=== PATIENT | male | born 1960 | race Caucasian/White ===

== ENCOUNTER 2022-05-08 09:50 | Emergency (ER) | payer OTHER, SELFPAY ==
[2022-05-08] VITALS (29 sets, daily range): BP systolic 137–157; BP diastolic 87–101; PULSE 75–101; RESP 16; TEMP 36.7–36.8; O2SAT 92–98; BMI 28.5
--- NOTE | 2022-05-08 10:03 | ED_ITS ---
HPI - Abdominal Pain General Time Seen by Provider: 10:03 <Chula Jade MD - Last Filed: 05/08/22 11:24> Date Seen: 05/08/22 <Chula Jade MD - Last Filed: 05/08/22 11:24> Chief Complaint: Abdominal Pain <Chula Jade MD - Last Filed: 05/08/22 11:24> Stated Complaint: Lower LF abdomen pain <Chula Jade MD - Last Filed: 05/08/22 11:24> Time Seen by Provider: 05/08/22 10:02 <Chula Jade MD - Last Filed: 05/08/22 11:24> Source: patient and RN notes reviewed <Chula Jade MD - Last Filed: 05/08/22 11:24> Mode of arrival: ambulatory <Chula Jade MD - Last Filed: 05/08/22 11:24> Limitations: no limitations <Chula Jade MD - Last Filed: 05/08/22 11:24> History of Present Illness HPI narrative: Patient is a 61-year-old male coming in with concern of left lower quadrant abdominal pain for few days now. Friday he maybe just felt a little gurgly in his abdomen. Friday he started noticing some discomfort. Bowels have been normal, no blood in stool, no diarrhea. No fevers and he has checked. He has been able to eat and drink fine. No change in urination. He has never had any bowel surgery. His is an RHIT in was wondering about maybe blockage. He has had no prior abdominal surgery. He states he has had a colonoscopy before, maybe 4-5 years ago. Denies any history of polyps. His dad has had kidney stones before, he is never had anything like kidney stones. He did try some milk of magnesia yesterday, stool was a little darker this morning. 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 This started to concern him though as it has been there for few days now. He was worried about possibly such things as pancreatitis. We did go over typical presentation of pancreatitis, this is less likely a diagnosis in my opinion after evaluation of him and did review this with him. We will however do a lipase and proceed with imaging in a 61-year-old male who is had abdominal pain for a few days now. He does notably have a known umbilical hernia which is not symptomatic for him. <Chula Jade MD - Last Filed: 05/08/22 11:24> Related Data Home Medications: Home Medications Medication Instructions Recorded Confirmed cbd drops 05/08/22 <Chula Jade MD - Last Filed: 05/08/22 11:24> Allergies/Adverse Reactions: Allergies Allergy/AdvReac Type Severity Reaction Status Date / Time No Known Drug Allergies Allergy Verified 05/08/22 09:56 <Chula Jade MD - Last Filed: 05/08/22 11:24> Review of Systems Status of ROS Reports: 10 or more systems reviewed and unremarkable except as noted in History and below <Chula Jade MD - Last Filed: 05/08/22 11:24> PFSH [facility] Social History: Social History Smoking Status: Former smoker Do you use any of these nicotine containing products: None Second hand tobacco smoke exposure: No How often do you have a drink containing alcohol: 2-3 times a week How many standard drinks containing alcohol do you have on a typical day: 5 or 6 AUDIT-C Alcohol total score: 5 Non-prescribed substance use: marijuana (any form) service: No <Chula Jade MD - Last Filed: 05/08/22 11:24> Exam Const: Vital Signs, click to edit/add: Vital Signs - 24 hr 05/08/22 09:57 05/08/22 10:03 05/08/22 10:04 Temperature 98.0 F Pulse Rate 95 92 Pulse Rate [Pulse Oximeter] 75 Respiratory Rate 16 16 Blood Pressure 137/95 H Blood Pressure [Ri ght Upper Arm] 142/94 H Pulse Oximetry 97 97 96 Oxygen Delivery Me thod Room Air 05/08/22 10:05 05/08/22 10:15 05/08/22 10:30 Temperature Pulse Rate 98 96 94 Pulse Rate [Pulse Oximeter] Respiratory Rate Blood Pressure Blood Pressure [Ri ght Upper Arm] Pulse Oximetry 96 98 96 Oxygen Delivery Me thod 05/08/22 10:32 05/08/22 10:46 05/08/22 11:00 Temperature Pulse Rate 90 91 90 Pulse Rate [Pulse Oximeter] Respiratory Rate Blood Pressure 141/87 H Blood Pressure [Ri ght Upper Arm] Pulse Oximetry 97 94 95 Oxygen Delivery Me thod 05/08/22 11:02 05/08/22 11:15 05/08/22 11:30 Temperature Pulse Rate 85 90 88 Pulse Rate [Pulse Oximeter] Respiratory Rate Blood Pressure 148/91 H Blood Pressure [Ri ght Upper Arm] Pulse Oximetry 95 96 96 Oxygen Delivery Me thod 05/08/22 11:31 05/08/22 11:32 05/08/22 11:45 Temperature Pulse Rate 87 86 84 Pulse Rate [Pulse Oximeter] Respiratory Rate Blood Pressure 146/92 H Blood Pressure [Ri ght Upper Arm] Pulse Oximetry 96 95 95 Oxygen Delivery Me thod 05/08/22 12:18 05/08/22 12:20 05/08/22 12:30 Temperature Pulse Rate 84 90 87 Pulse Rate [Pulse Oximeter] Respiratory Rate Blood Pressure Blood Pressure [Ri ght Upper Arm] Pulse Oximetry 96 96 96 Oxygen Delivery Me thod 05/08/22 12:34 05/08/22 12:45 05/08/22 13:00 Temperature Pulse Rate 86 101 H 91 Pulse Rate [Pulse Oximeter] Respiratory Rate Blood Pressure Blood Pressure [Ri ght Upper Arm] Pulse Oximetry 96 95 95 Oxygen Delivery Me thod 05/08/22 13:02 05/08/22 13:15 05/08/22 13:30 Temperature Pulse Rate 89 92 92 Pulse Rate [Pulse Oximeter] Respiratory Rate Blood Pressure 145/99 H Blood Pressure [Ri ght Upper Arm] Pulse Oximetry 95 93 94 Oxygen Delivery Me thod 05/08/22 13:31 05/08/22 13:45 05/08/22 14:00 Temperature Pulse Rate 91 97 94 Pulse Rate [Pulse Oximeter] Respiratory Rate Blood Pressure 157/97 H Blood Pressure [Ri ght Upper Arm] Pulse Oximetry 94 92 95 Oxygen Delivery Me thod 05/08/22 14:02 05/08/22 14:15 Temperature 98.3 F Pulse Rate 95 94 Pulse Rate [Pulse Oximeter] Respiratory Rate 16 Blood Pressure 152/101 H Blood Pressure [Ri ght Upper Arm] Pulse Oximetry 95 96 Oxygen Delivery Me thod <Chula Jade MD - Last Filed: 05/08/22 11:24> Vital Signs, click to edit/add: Vital Signs - 24 hr 05/08/22 09:57 05/08/22 10:03 05/08/22 10:04 Temperature 98.0 F Pulse Rate 95 92 Pulse Rate [Pulse Oximeter] 75 Respiratory Rate 16 16 Blood Pressure 137/95 H Blood Pressure [Ri ght Upper Arm] 142/94 H Pulse Oximetry 97 97 96 Oxygen Delivery Me thod Room Air 05/08/22 10:05 05/08/22 10:15 05/08/22 10:30 Temperature Pulse Rate 98 96 94 Pulse Rate [Pulse Oximeter] Respiratory Rate Blood Pressure Blood Pressure [Ri ght Upper Arm] Pulse Oximetry 96 98 96 Oxygen Delivery Me thod 05/08/22 10:32 05/08/22 10:46 05/08/22 11:00 Temperature Pulse Rate 90 91 90 Pulse Rate [Pulse Oximeter] Respiratory Rate Blood Pressure 141/87 H Blood Pressure [Ri ght Upper Arm] Pulse Oximetry 97 94 95 Oxygen Delivery Me thod 05/08/22 11:02 05/08/22 11:15 05/08/22 11:30 Temperature Pulse Rate 85 90 88 Pulse Rate [Pulse Oximeter] Respiratory Rate Blood Pressure 148/91 H Blood Pressure [Ri ght Upper Arm] Pulse Oximetry 95 96 96 Oxygen Delivery Me thod 05/08/22 11:31 05/08/22 11:32 05/08/22 11:45 Temperature Pulse Rate 87 86 84 Pulse Rate [Pulse Oximeter] Respiratory Rate Blood Pressure 146/92 H Blood Pressure [Ri ght Upper Arm] Pulse Oximetry 96 95 95 Oxygen Delivery Me thod 05/08/22 12:18 05/08/22 12:20 05/08/22 12:30 Temperature Pulse Rate 84 90 87 Pulse Rate [Pulse Oximeter] Respiratory Rate Blood Pressure Blood Pressure [Ri ght Upper Arm] Pulse Oximetry 96 96 96 Oxygen Delivery Me thod 05/08/22 12:34 05/08/22 12:45 05/08/22 13:00 Temperature Pulse Rate 86 101 H 91 Pulse Rate [Pulse Oximeter] Respiratory Rate Blood Pressure Blood Pressure [Ri ght Upper Arm] Pulse Oximetry 96 95 95 Oxygen Delivery Me thod 05/08/22 13:02 05/08/22 13:15 05/08/22 13:30 Temperature Pulse Rate 89 92 92 Pulse Rate [Pulse Oximeter] Respiratory Rate Blood Pressure 145/99 H Blood Pressure [Ri ght Upper Arm] Pulse Oximetry 95 93 94 Oxygen Delivery Me thod 05/08/22 13:31 05/08/22 13:45 05/08/22 14:00 Temperature Pulse Rate 91 97 94 Pulse Rate [Pulse Oximeter] Respiratory Rate Blood Pressure 157/97 H Blood Pressure [Ri ght Upper Arm] Pulse Oximetry 94 92 95 Oxygen Delivery Me thod 05/08/22 14:02 05/08/22 14:15 Temperature 98.3 F Pulse Rate 95 94 Pulse Rate [Pulse Oximeter] Respiratory Rate 16 Blood Pressure 152/101 H Blood Pressure [Ri ght Upper Arm] Pulse Oximetry 95 96 Oxygen Delivery Me thod <Stacey Culver MD - Last Filed: 05/08/22 14:37> Documenting provider has reviewed patient's vital signs: yes <Chula Jade MD - Last Filed: 05/08/22 11:24> Common normals: no apparent distress, oriented x3, no limitations, healthy appearing, alert and well nourished <Chula Jade MD - Last Filed: 05/08/22 11:24> General appearance: cooperative, comfortable, well kempt and well developed <Chula Jade MD - Last Filed: 05/08/22 11:24> Nutritional appearance: overweight <Chula Jade MD - Last Filed: 05/08/22 11:24> HENMT: Common normals: normocephalic, head/scalp atraumatic, hearing grossly normal bilaterally, external ears normal, external nose normal, moist oral mucous membranes and oropharynx normal <Chula Jade MD - Last Filed: 05/08/22 11:24> Head and scalp: normocephalic and atraumatic <Chula Jade MD - Last Filed: 05/08/22 11:24> Nose: external nose normal <Chula Jade MD - Last Filed: 05/08/22 11:24> External ear: external ears normal <Chula Jade MD - Last Filed: 05/08/22 11:24> Eye: Common normals: PERRL, EOMs intact bilaterally, conjunctivae normal and no scleral icterus <Chula Jade MD - Last Filed: 05/08/22 11:24> Conjunctiva: conjunctiva(e) normal <Chula Jade MD - Last Filed: 05/08/22 11:24> Pupil: PERRL <Chula Jade MD - Last Filed: 05/08/22 11:24> Neck & C-Spine: Common normals: full ROM, no lymphadenopathy, supple, no meningeal signs, no JVD and thyroid normal <Chula Jade MD - Last Filed: 05/08/22 11:24> Thyroid: thyroid normal <Chula Jade MD - Last Filed: 05/08/22 11:24> Resp: Common normals: normal respiratory effort, no retractions, no use of accessory muscles and clear to auscultation bilaterally <Chula Monaco MD - Last Filed: 05/08/22 11:24> Auscultation: clear to auscultation bilaterally <Chula Jdae MD - Last Filed: 05/08/22 11:24> Cardio: Common normals: no JVD, regular rate, regular rhythm, S1 normal heart sound, S2 normal heart sound, no gallops, no clicks and no murmurs <Chula Jade MD - Last Filed: 05/08/22 11:24> Rate: regular rate <Chula Jade MD - Last Filed: 05/08/22 11:24> Rhythm: regular rhythm <Chula Jade MD - Last Filed: 05/08/22 11:24> Heart sounds: S1 normal and S2 normal <Chula Jade MD - Last Filed: 05/08/22 11:24> GI: Common normals: Normal to inspection, nondistended, normoactive bowel sounds present, soft to palpation, no hepatosplenomegaly and no masses <Chula Jade MD - Last Filed: 05/08/22 11:24> Palpation: soft and no hepatosplenomegaly <Chula Jade MD - Last Filed: 05/08/22 11:24> Other: Mild mid to left lower quadrant abdominal tenderness without any palpable mass, no rebound or guarding at this time. <Chula Jade MD - Last Filed: 05/08/22 11:24> Neuro: Common normals: oriented x3 <Chula Jade MD - Last Filed: 05/08/22 11:24> Sensorium/orientation: alert <Chula Jade MD - Last Filed: 05/08/22 11:24> Meningeal signs: no meningeal signs <Chula Jade MD - Last Filed: 05/08/22 11:24> Psych: Appearance: well kempt <Chula Jade MD - Last Filed: 05/08/22 11:24> Course Course Hospital Course: Will establish an IV, do CT imaging of his abdomen with IV contrast. We will get urinalysis, consider kidney stones. Without other changes, unclear exactly what this is. It certainly could be a low level diverticulitis. I am doubtful that this is an acute surgical abdomen but it could be GI, or other internal abdominal causes of his pain. We need labs and imaging to help us further delineate. His pain is not extensive, does not require any intervention at this time. <Chula Jade MD - Last Filed: 05/08/22 11:24> Reevaluation(s) Reevaluation #1: Reviewed with patient his normal white count, normal lactate and normal urinalysis. The imaging has not been done, awaiting chemistries. Patient brought up that his brother from a thyroid storm, he would like a blood test done for screening with TSH. I tried to review with him that he has no symptoms of thyroid star arm, he has absolutely no tachycardia, no physical stigmata of thyroid storm. It seems that I am unable to reassure him, did end up doing a lab add on for a TSH. Care has been signed over to Dr. Culver. <Chula Jade MD - Last Filed: 05/08/22 11:24> Time: 11:20 <Chula Jade MD - Last Filed: 05/08/22 11:24> Reevaluation #2: Patient was signed out to me by Dr. Shultz to follow up on labs and CT. His labs are reassuring, he was concerned about possible thyroid storm because he has a brother who of this diagnosis. His TSH is normal. His CT scan is read by Radiology showing an enlarged prostate and uncomplicated diverticulitis of the descending colon. I have reviewed all this with him. I have shared with him that more recent studies have not shown a difference between treatment with antibiotics verses observation for uncomplicated diverticulitis in otherwise healthy people. I have discussed with him that regardless of treatment verses observation it is possible that his diverticulitis might get worse and that he might develop a complication requiring IV antibiotics, hospitalization or surgery. He says that he tends to prefer a more holistic route and that he would prefer not to take antibiotics if he does not need to. Therefore, using shared decision-making we will hold off on antibiotics at this time. He will maintain a bland diet, and he understands that if he is having more severe pain or new symptoms such as fever, chills, vomiting, bloody stools etcetera he needs to return to the emergency department for further evaluation. He is comfortable with that plan. <Stacey Culver MD - Last Filed: 05/08/22 14:37> Vital Signs Vital signs: Initial Vital Signs Temperature 98.0 F 05/08/22 09:57 Temperature Source Temporal Artery Scan 05/08/22 09:57 Pulse Rate 75 05/08/22 09:57 Pulse Rhythm 05/08/22 09:57 Respiratory Rate 16 05/08/22 09:57 Blood Pressure 142/94 H 05/08/22 09:57 Blood Pressure Mean 110 05/08/22 09:57 Blood Pressure Position Supine 05/08/22 09:57 Pulse Oximetry 97 05/08/22 09:57 Oxygen Delivery Method 05/08/22 09:57 Vital Signs Temperature 98.0 F 05/08/22 09:57 Pulse Rate 75 05/08/22 09:57 Respiratory Rate 16 05/08/22 09:57 Blood Pressure 142/94 H 05/08/22 09:57 Pulse Oximetry 97 05/08/22 09:57 Oxygen Delivery Method 05/08/22 09:57 Temperature 98.3 F 05/08/22 14:15 Pulse Rate 94 05/08/22 14:15 Respiratory Rate 16 05/08/22 14:15 Blood Pressure 152/101 H 05/08/22 14:02 Pulse Oximetry 96 05/08/22 14:15 Oxygen Delivery Method 05/08/22 09:57 <Chula Jade MD - Last Filed: 05/08/22 11:24> Initial Vital Signs Temperature 98.0 F 05/08/22 09:57 Temperature Source Temporal Artery Scan 05/08/22 09:57 Pulse Rate 75 05/08/22 09:57 Pulse Rhythm 05/08/22 09:57 Respiratory Rate 16 05/08/22 09:57 Blood Pressure 142/94 H 05/08/22 09:57 Blood Pressure Mean 110 05/08/22 09:57 Blood Pressure Position Supine 05/08/22 09:57 Pulse Oximetry 97 05/08/22 09:57 Oxygen Delivery Method 05/08/22 09:57 Vital Signs Temperature 98.0 F 05/08/22 09:57 Pulse Rate 75 05/08/22 09:57 Respiratory Rate 16 05/08/22 09:57 Blood Pressure 142/94 H 05/08/22 09:57 Pulse Oximetry 97 05/08/22 09:57 Oxygen Delivery Method 05/08/22 09:57 Temperature 98.3 F 05/08/22 14:15 Pulse Rate 94 05/08/22 14:15 Respiratory Rate 16 05/08/22 14:15 Blood Pressure 152/101 H 05/08/22 14:02 Pulse Oximetry 96 05/08/22 14:15 Oxygen Delivery Method 05/08/22 09:57 <Stacey Culver MD - Last Filed: 05/08/22 14:37> MDM - Abdominal Pain Lab Data Attestation: I reviewed the patient's lab results. <Chula Jade MD - Last Filed: 05/08/22 11:24> Labs: Lab Results 05/08/22 05/08/22 05/08/22 Range/Units 10:14 10:38 10:38 WBC 8.45 (4.50-11.00) K/uL RBC 4.96 (4.30-5.90) m/uL Hgb 15.7 (13.5-17.5) gm/dL Hct 46.3 (37.0-53.0) % MCV 93 (80-100) fL MCH 32 (26-34) pg MCHC 34 (32-36) gm/dL RDW Coeff of Oscar 12.9 (11.5-15.5) % Plt Count 191 (140-440) K/uL Neut % (Auto) 66.4 (42.0-72.0) % Lymph % (Auto) 25.0 (20-44) % [place] % (Auto) 7.7 (0.0-11.0) % Eos % (Auto) 0.6 (0.0-7.0) % Baso % (Auto) 0.2 (0.0-3.0) % Neut # (Auto) 5.61 (1.7-7.0) K/uL Lymph # (Auto) 2.11 (0.90-2.90) K/uL [place] # (Auto) 0.70 (0.00-0.90) K/UL Eos # (Auto) 0.05 (0.00-0.50) K/uL Baso # (Auto) 0.02 (0.00-0.30) K/uL Sodium (135-149) mmol/L Potassium (3.6-5.1) mmol/L Chloride (96-114) mmol/L Carbon Dioxide (20-32) mmol/L BUN (7-30) mg/dL Creatinine (0.5-1.5) mg/dL Estimated Creat Clear Estimated GFR ml/min Glucose (60-115) mg/dL Lactate 1.5 (0.5-1.9) mmol/L Calcium (8.4-10.6) mg/dL Total Bilirubin (0.1-1.5) mg/dL AST (12-35) U/L ALT (4-50) U/L Alkaline Phosphatase (40-150) U/L C-Reactive Protein (0.5-1.0) mg/dL Total Protein (6.0-8.3) g/dL Albumin (3.3-5.0) g/dL Lipase (23-300) U/L TSH (0.270-4.20) uIU/mL Urine Color Yellow (Yellow) Urine Appearance Clear (Clear) Urine pH 6.5 (5.0-8.5) Ur Specific [place] >= 1.030 (1.000-1.030) Urine Protein Trace A (Negative) Urine Glucose (UA) Negative (Negative) Urine Ketones Trace A (Negative) Urine Blood Negative (Negative) Urine Nitrite Negative (Negative) Urine Bilirubin Negative (Negative) Urine Urobilinogen 1.0 (0.2-1.0) Ur Leukocyte Esterase Negative (Negative) Urine RBC 0-2 (0-2) Urine WBC 0-2 (0-5) Ur Squamous Epith Cells Few (None-Few) Amorphous Sediment Few A (None) Urine Bacteria None (None) 05/08/22 05/08/22 Range/Units 10:38 10:38 WBC (4.50-11.00) K/uL RBC (4.30-5.90) m/uL Hgb (13.5-17.5) gm/dL Hct (37.0-53.0) % MCV (80-100) fL MCH (26-34) pg MCHC (32-36) gm/dL RDW Coeff of Oscar (11.5-15.5) % Plt Count (140-440) K/uL Neut % (Auto) (42.0-72.0) % Lymph % (Auto) (20-44) % [place] % (Auto) (0.0-11.0) % Eos % (Auto) (0.0-7.0) % Baso % (Auto) (0.0-3.0) % Neut # (Auto) (1.7-7.0) K/uL Lymph # (Auto) (0.90-2.90) K/uL [place] # (Auto) (0.00-0.90) K/UL Eos # (Auto) (0.00-0.50) K/uL Baso # (Auto) (0.00-0.30) K/uL Sodium 138 (135-149) mmol/L Potassium 4.0 (3.6-5.1) mmol/L Chloride 105 (96-114) mmol/L Carbon Dioxide 26 (20-32) mmol/L BUN 12 (7-30) mg/dL Creatinine 1.1 (0.5-1.5) mg/dL Estimated Creat Clear 77.40 Estimated GFR 76 ml/min Glucose 118 H (60-115) mg/dL Lactate (0.5-1.9) mmol/L Calcium 8.9 (8.4-10.6) mg/dL Total Bilirubin 0.8 (0.1-1.5) mg/dL AST 28 (12-35) U/L ALT 31 (4-50) U/L Alkaline Phosphatase 60 (40-150) U/L C-Reactive Protein 1.8 H (0.5-1.0) mg/dL Total Protein 7.4 (6.0-8.3) g/dL Albumin 4.3 (3.3-5.0) g/dL Lipase 78 (23-300) U/L TSH 2.890 (0.270-4.20) uIU/mL Urine Color (Yellow) Urine Appearance (Clear) Urine pH (5.0-8.5) Ur Specific [place] (1.000-1.030) Urine Protein (Negative) Urine Glucose (UA) (Negative) Urine Ketones (Negative) Urine Blood (Negative) Urine Nitrite (Negative) Urine Bilirubin (Negative) Urine Urobilinogen (0.2-1.0) Ur Leukocyte Esterase (Negative) Urine RBC (0-2) Urine WBC (0-5) Ur Squamous Epith Cells (None-Few) Amorphous Sediment (None) Urine Bacteria (None) <Chula Jade MD - Last Filed: 05/08/22 11:24> Lab Results 05/08/22 05/08/22 05/08/22 Range/Units 10:14 10:38 10:38 WBC 8.45 (4.50-11.00) K/uL RBC 4.96 (4.30-5.90) m/uL Hgb 15.7 (13.5-17.5) gm/dL Hct 46.3 (37.0-53.0) % MCV 93 (80-100) fL MCH 32 (26-34) pg MCHC 34 (32-36) gm/dL RDW Coeff of Oscar 12.9 (11.5-15.5) % Plt Count 191 (140-440) K/uL Neut % (Auto) 66.4 (42.0-72.0) % Lymph % (Auto) 25.0 (20-44) % [place] % (Auto) 7.7 (0.0-11.0) % Eos % (Auto) 0.6 (0.0-7.0) % Baso % (Auto) 0.2 (0.0-3.0) % Neut # (Auto) 5.61 (1.7-7.0) K/uL Lymph # (Auto) 2.11 (0.90-2.90) K/uL [place] # (Auto) 0.70 (0.00-0.90) K/UL Eos # (Auto) 0.05 (0.00-0.50) K/uL Baso # (Auto) 0.02 (0.00-0.30) K/uL Sodium (135-149) mmol/L Potassium (3.6-5.1) mmol/L Chloride (96-114) mmol/L Carbon Dioxide (20-32) mmol/L BUN (7-30) mg/dL Creatinine (0.5-1.5) mg/dL Estimated Creat Clear Estimated GFR ml/min Glucose (60-115) mg/dL Lactate 1.5 (0.5-1.9) mmol/L Calcium (8.4-10.6) mg/dL Total Bilirubin (0.1-1.5) mg/dL AST (12-35) U/L ALT (4-50) U/L Alkaline Phosphatase (40-150) U/L C-Reactive Protein (0.5-1.0) mg/dL Total Protein (6.0-8.3) g/dL Albumin (3.3-5.0) g/dL Lipase (23-300) U/L TSH (0.270-4.20) uIU/mL Urine Color Yellow (Yellow) Urine Appearance Clear (Clear) Urine pH 6.5 (5.0-8.5) Ur Specific [place] >= 1.030 (1.000-1.030) Urine Protein Trace A (Negative) Urine Glucose (UA) Negative (Negative) Urine Ketones Trace A (Negative) Urine Blood Negative (Negative) Urine Nitrite Negative (Negative) Urine Bilirubin Negative (Negative) Urine Urobilinogen 1.0 (0.2-1.0) Ur Leukocyte Esterase Negative (Negative) Urine RBC 0-2 (0-2) Urine WBC 0-2 (0-5) Ur Squamous Epith Cells Few (None-Few) Amorphous Sediment Few A (None) Urine Bacteria None (None) 05/08/22 05/08/22 Range/Units 10:38 10:38 WBC (4.50-11.00) K/uL RBC (4.30-5.90) m/uL Hgb (13.5-17.5) gm/dL Hct (37.0-53.0) % MCV (80-100) fL MCH (26-34) pg MCHC (32-36) gm/dL RDW Coeff of Oscar (11.5-15.5) % Plt Count (140-440) K/uL Neut % (Auto) (42.0-72.0) % Lymph % (Auto) (20-44) % [place] % (Auto) (0.0-11.0) % Eos % (Auto) (0.0-7.0) % Baso % (Auto) (0.0-3.0) % Neut # (Auto) (1.7-7.0) K/uL Lymph # (Auto) (0.90-2.90) K/uL [place] # (Auto) (0.00-0.90) K/UL Eos # (Auto) (0.00-0.50) K/uL Baso # (Auto) (0.00-0.30) K/uL Sodium 138 (135-149) mmol/L Potassium 4.0 (3.6-5.1) mmol/L Chloride 105 (96-114) mmol/L Carbon Dioxide 26 (20-32) mmol/L BUN 12 (7-30) mg/dL Creatinine 1.1 (0.5-1.5) mg/dL Estimated Creat Clear 77.40 Estimated GFR 76 ml/min Glucose 118 H (60-115) mg/dL Lactate (0.5-1.9) mmol/L Calcium 8.9 (8.4-10.6) mg/dL Total Bilirubin 0.8 (0.1-1.5) mg/dL AST 28 (12-35) U/L ALT 31 (4-50) U/L Alkaline Phosphatase 60 (40-150) U/L C-Reactive Protein 1.8 H (0.5-1.0) mg/dL Total Protein 7.4 (6.0-8.3) g/dL Albumin 4.3 (3.3-5.0) g/dL Lipase 78 (23-300) U/L TSH 2.890 (0.270-4.20) uIU/mL Urine Color (Yellow) Urine Appearance (Clear) Urine pH (5.0-8.5) Ur Specific [place] (1.000-1.030) Urine Protein (Negative) Urine Glucose (UA) (Negative) Urine Ketones (Negative) Urine Blood (Negative) Urine Nitrite (Negative) Urine Bilirubin (Negative) Urine Urobilinogen (0.2-1.0) Ur Leukocyte Esterase (Negative) Urine RBC (0-2) Urine WBC (0-5) Ur Squamous Epith Cells (None-Few) Amorphous Sediment (None) Urine Bacteria (None) <Stacey Culver MD - Last Filed: 05/08/22 14:37> Discharge Plan Discharge Clinical Impression: Diverticulitis <Chula Jade MD - Last Filed: 05/08/22 11:24> Patient Disposition: Home, Self-Care <Chula Jade MD - Last Filed: 05/08/22 11:24> Condition: Improved <Chula Jade MD - Last Filed: 05/08/22 11:24> Instructions: Diverticulitis (ED) <Chula Jade MD - Last Filed: 05/08/22 11:24> Additional Instructions: [place] diet for the next several days. Return to the emergency department for worsening pain new symptoms such as fever, chills, vomiting or bloody stools. Primary care follow-up in the next several days for recheck. Continue colonoscopies as scheduled. <Chula Jade MD - Last Filed: 05/08/22 11:24> Prescriptions: No Action cbd drops <Chula Jade MD - Last Filed: 05/08/22 11:24> Follow Up/Referrals: Provider,Not a Local [Primary Care Provider] - <Chula Jade MD - Last Filed: 05/08/22 11:24> Stand Alone Forms: MyHealth Info Instructions <Chula Jade MD - Last Filed: 05/08/22 11:24>
--- NOTE | 2022-05-08 10:16 | CRLHL7_ITS ---
For Patients: As a result of the Century Cures Act, medical imaging exams and procedure reports are released immediately into your electronic medical record. You may view this report before your referring provider. If you have questions, please contact your health care provider. INDICATION: Left lower quadrant pain. TECHNIQUE: CT abdomen and pelvis acquired with 100 mL Isovue 370 contrast. COMPARISON: None. FINDINGS: Lower chest: Motion artifact. No focal consolidation. Liver: No suspicious focal hepatic lesion. Gallbladder and bile ducts: Unremarkable. Pancreas: Unremarkable. Spleen: Unremarkable. Adrenal glands: Unremarkable. Kidneys: Kidneys enhance symmetrically, without hydronephrosis. Retroperitoneum: No lymphadenopathy. Bowel and mesentery: Bowel is not obstructed. Mild focal diverticulitis at the mid descending colon. Normal appendix. No significant ascites. No pneumoperitoneum. Bladder: Unremarkable for degree of distension. Reproductive organs: Prostatomegaly. Pelvic lymph nodes: No lymphadenopathy. Vessels: Scattered atherosclerotic calcifications. Abdominal wall: No acute abdominal wall abnormality. Bones: Multilevel degenerative changes of the spine. No suspicious/aggressive focal osseous lesion. IMPRESSION: 1. Mild acute uncomplicated diverticulitis at the mid descending colon. 2. Prostatomegaly, correlate with serum PSA. Please note that all CT scans at this facility use dose modulation, iterative reconstruction, and/or weight-based dosing when appropriate to reduce radiation dose to as low as reasonably achievable. Dictated by Heriberto Howell MD @ 05/08/2022 2:04:30 PM (Electronically Signed)
[2022-05-08 10:47] LABS: Lactate* 1.5 mmol/L (0.5-1.9)
[2022-05-08 10:47] LABS: Appearance Urine Clear (Clear); Bilirubin Urine Negative (Negative); Blood Urine Negative (Negative); Color Urine Yellow (Yellow); Glucose Urine Negative (Negative); Ketones Urine Trace (Negative); Leukocyte Esterase Urine Negative (Negative); Nitrite Urine Negative (Negative); Protein Urine Trace (Negative); Specific Gravity Urine >= 1.030 (1.000-1.030); pH Urine 6.5 (5.0-8.5)
[2022-05-08 10:49] LABS: Basophils Absolute Auto 0.02 K/uL (0.00-0.30); Basophils Percent Auto 0.2 % (0.0-3.0); Eosinophils Absolute Auto 0.05 K/uL (0.00-0.50); Eosinophils Percent Auto 0.6 % (0.0-7.0); Hematocrit 46.3 % (37.0-53.0); Hemoglobin* 15.7 gm/dL (13.5-17.5); Immature Granulocytes Abs Auto 0.01 K/uL (0.00-0.30); Immature Granulocytes Pct Auto 0.1 %; Lymphocytes Absolute Auto 2.11 K/uL (0.90-2.90); Mean Corpuscular HGB Conc 34 gm/dL (32-36); Mean Corpuscular Hemoglobin 32 pg (26-34); Mean Corpuscular Volume 93 fL (80-100); Monocytes Percent Auto 7.7 % (0.0-11.0); Neutrophils Absolute Auto 5.61 K/uL (1.7-7.0); Neutrophils Percent Auto 66.4 % (42.0-72.0); Platelet Count* 191 K/uL (140-440); RDW Coefficient of Variation % 12.9 % (11.5-15.5); Red Blood Count 4.96 m/uL (4.30-5.90); White Blood Count* 8.45 K/uL (4.50-11.00)
[2022-05-08 10:56] LABS: Slide Review Reflex No
[2022-05-08 11:05] LABS: Amorphous Sediment Urine Few; RBC Urine 0-2 (0-2); Squamous Epithelial Cell Urine Few (None-Few); WBC Urine 0-2 (0-5)
[2022-05-08 11:12] LABS: Chloride* 105 mmol/L (96-114)
[2022-05-08 11:13] LABS: Albumin* 4.3 g/dL (3.3-5.0); Sodium* 138 mmol/L (135-149)
[2022-05-08 11:16] LABS: Bilirubin Total* 0.8 mg/dL (0.1-1.5); Creatinine* 1.1 mg/dL (0.5-1.5); Estimated Glomerular Filt Rate 76 ml/min
[2022-05-08 11:17] LABS: Alanine Aminotransferase* 31 U/L (4-50); Alkaline Phosphatase* 60 U/L (40-150); Aspartate Amino Transferase* 28 U/L (12-35); Blood Urea Nitrogen* 12 mg/dL (7-30); Calcium* 8.9 mg/dL (8.4-10.6); Carbon Dioxide* 26 mmol/L (20-32); Glucose* 118 mg/dL (60-115); Lipase* 78 U/L (23-300); Total Protein* 7.4 g/dL (6.0-8.3)
[2022-05-08 11:19] LABS: C Reactive Protein* 1.8 mg/dL (0.5-1.0)
--- NOTE | 2022-05-08 14:26 | PC.NURSE ---
Patient discharged. F/U with PCP in a week for check up and to address enlarged prostate. Patient aware. All questions answered. PIV taken out. TSH level reported to patient.
--- NOTE | 2022-05-09 14:55 | ED.NURSE ---
called in and stated that his thought he better have antibiotics. is feeling better and was told that he needs to return to ed for reevaluation if he is thinking he needs antibiotics.
== END 2022-05-08 14:27 | disposition home or self-care (01) ==
PROVIDERS: Family Medicine; Emergency Provider Emergency Medicine
DX: K57.92 Diverticulitis of intestine, part unspecified, without perforation or abscess without bleeding (principal)
CPT/HCPCS: 36415; 74177; 80053; 81001; 83605; 83690; 84443; 85025; 86140; 99284; Q9967